=== PATIENT | female | born 1990 | race Caucasian/White ===

== ENCOUNTER 2018-01-05 16:36 | Emergency (ER) | payer OTHER ==
[~2018-01-05] VITALS: Ht 160 cm; Wt 78.0 kg
[~2018-01-05 16:36] MED LIST: DIAZEPAM5 MG PO; FLEXERIL10 MG PO; MACROBID100 MG PO; MOTRIN600 MG PO; OXYCODONE HCL5 MG PO; ROXICODONE5 MG PO
[2018-01-05 17:01] LABS: APPEARANCE CLEAR ((CLEAR)); BILIRUBIN NEGATIVE; BLOOD NEGATIVE; COLOR YELLOW ((YELLOW)); GLUCOSE (STRIP) NEGATIVE; KETONES NEGATIVE; LEUKOCYTES NEGATIVE; NITRITE NEGATIVE; PROTEIN (STRIP) NEGATIVE; SPECIFIC GRAVITY 1.011 (1.000-1.030); UCUL ADDED? NO; UROBILINOGEN 0.2 MG/DL (0.2-1.0)
[2018-01-05 17:10] LABS: HEMATOCRIT 40.5 % (36.0-46.0); HEMOGLOBIN 14.3 G/DL (11.9-15.5); MCH 29.9 PG (29.0-34.0); MCHC 35.3 G/DL (30.0-36.0); MCV 84.6 FL (83-99); PLATELET COUNT 253 K/uL (156-360); RBC DIS.WIDTH-CV 11.6 % (11.8-14.6); RBC DIS.WIDTH-SD 35.5 % (39-53); RED BLOOD COUNT 4.79 M/uL (3.80-5.20); WHITE BLOOD COUNT 8.2 K/uL (4.1-10.2)
[2018-01-05 17:22] LABS: ALBUMIN 4.3 g/dL (3.2-4.8); CHLORIDE 105 mEq/L (99-109); POTASSIUM 3.8 mEq/L (3.7-5.4); SODIUM 138 mEq/L (136-147)
[2018-01-05 17:24] LABS: GLUCOSE 123 mg/dL (70-99); TOTAL PROTEIN 7.3 g/dL (6.4-8.3)
[2018-01-05 17:26] LABS: TOTAL BILIRUBIN 0.3 mg/dL (0.0-1.0)
[2018-01-05 17:28] LABS: ALKALINE PHOSPHATASE 45 IU/L (3-129); CREATININE 0.9 mg/dL (0.6-1.3); GFR ESTIMATE (CALCULATED) > 59 mL/min/
[2018-01-05 17:29] LABS: UREA NITROGEN (BUN) 11 mg/dL (9-23)
[2018-01-05 17:30] LABS: AST (GOT) 17 IU/L (2-34)
[2018-01-05 17:31] LABS: ALT (GPT) 15 IU/L (3-49)
[2018-01-05 17:41] LABS: QUANTITATIVE HCG < 4.0 MIU/ML
[2018-01-05] MEDS ORDERED: ZOFRAN4 MG PO (20:38)
[2018-01-05] MEDS ORDERED: NAPROXEN500 MG PO (20:38)
[2018-01-05] MEDS ORDERED: KEFLEX500 MG PO (20:46)
[2018-01-05 20:55] VITALS: BP 135/95
== END 2018-01-05 20:55 | disposition home or self-care (01) ==
LOC: EME 16:36
PROVIDERS: Physician Assistant
DX: N83.201 Unspecified ovarian cyst, right side (principal); L03.116 Cellulitis of left lower limb; J45.909 Unspecified asthma, uncomplicated; F32.9 Major depressive disorder, single episode, unspecified; Z97.5 Presence of (intrauterine) contraceptive device; Q07.00 Arnold-Chiari syndrome without spina bifida or hydrocephalus
CPT/HCPCS: 74176; 76856; 80053; 81003; 84702; 85027; 99281; 99284